=== PATIENT | female | born 1975 | race Caucasian/White ===

== ENCOUNTER 2024-04-04 10:16 | Day surgery (SDC) | payer OTHER ==
[~2024-04-04] VITALS: Ht 160 cm; Wt 72.6 kg
[2024-04-04] MEDS ORDERED: fentaNYL citrate 0.05 MG/ML VIAL ONE (12:02)
[2024-04-04] MEDS: fentaNYL citrate 0.05 MG/ML VIAL IVP ONE (12:42)
[2024-04-04] MEDS: LIDOCAINE 2% 100 MG/5 ML UJET TP ONE (12:53)
== END 2024-04-04 13:14 | disposition home or self-care (01) ==
LOC: MDS 10:16 → MMU 10:17 → MDS 13:14
PROVIDERS: ATTEND Internal Medicine Gastroenterology
DX: Z12.11 Encounter for screening for malignant neoplasm of colon (principal); Z98.890 Other specified postprocedural states; Z79.899 Other long term (current) drug therapy
CPT/HCPCS: 45378; J3010